=== PATIENT | male | born 1950 | race Caucasian/White ===

== ENCOUNTER 2018-07-22 10:44 | Inpatient (IN) | payer MEDICARE, MEDICAID ==
[~2018-07-22] VITALS: Ht 165.1 cm; Wt 61.4 kg
[2018-07-22] VITALS: BP 130/65
[2018-07-22] MEDS ORDERED: SODIUM CHLORIDE 0.9% 1,000 ML IV ONE (11:32)
[2018-07-22 12:50] LABS: INR 1.3; PROTHROMBIN TIME 12.7 sec (9.1-11.1)
[2018-07-22 12:53] LABS: CHLORIDE 105 mEq/L (98-107)
[2018-07-22 13:00] LABS: BASOPHILS % 0.3 % (0.0-2.0); EOSINOPHILS % 2.8 % (0.0-5.0); HEMATOCRIT. 34.8 % (42.0-52.0); LYMPHOCYTES % 8.5 % (20.0-50.0); MEAN CORPUSCULAR HEMOGLOBIN 32.6 pg (28.0-32.0); MEAN CORPUSCULAR VOLUME 94.7 fL (80.0-94.0); MEAN PLATELET VOLUME 8.7 fl (7.4-10.4); MONOCYTES % 8.9 % (2.0-8.0); NEUTROPHILS % 79.5 % (40.0-76.0); PLATELET 134 x1000/uL (130-400); RED BLOOD CELL COUNT 3.67 mill/uL (4.7-6.1); RED CELL DISTRIBUTION WIDTH 18.1 % (11.6-14.6)
[2018-07-22 13:34] LABS: CLARITY URINE CLEAR (CLEAR); COLOR URINE YELLOW (YELLOW); KETONES URINE TRACE (NEGATIVE); LEUKOCYTE ESTERASE URINE NEGATIVE (NEGATIVE); NITRITE URINE NEGATIVE (NEGATIVE); OCCULT BLOOD URINE NEGATIVE (NEGATIVE); PH URINE 7.5 (4.5-8.0); PROTEIN URINE NEGATIVE (NEGATIVE); SPECIFIC GRAVITY URINE 1.008 (1.005-1.030)
[2018-07-22] MEDS: SODIUM CHLORIDE 0.9% 1,000 ML IV SCH (14:54)
[2018-07-22] MEDS ORDERED: IOHEXOL-300 100 ML BOTTLE ONE (14:59)
[2018-07-22] MEDS ORDERED: NITROGLYCERIN 0.4MG TABLET SL SL PRN (15:00)
[2018-07-22] MEDS ORDERED: DOCUSATE SODIUM 100MG CAPSULE PO PRN (15:00)
[2018-07-22] MEDS ORDERED: IPRATROPIUM/ALBUTEROL 0.5-3(2.5)MG/3ML NEB INH PRN (15:00)
[2018-07-22] MEDS ORDERED: LORAZEPAM 0.5MG TABLET PO PRN (15:00)
[2018-07-22] MEDS ORDERED: ZOLPIDEM TARTRATE 5MG TABLET PO PRN (15:00)
[2018-07-22] MEDS ORDERED: ACETAMINOPHEN 325MG TABLET PO PRN (15:00)
[2018-07-22] MEDS ORDERED: CLONIDINE 0.1MG TABLET PO PRN (15:00)
[2018-07-22] MEDS ORDERED: MAGNESIUM/ALUMINUM HYDROXIDE/SIMETHICONE 30ML UDC PO PRN (15:00)
[2018-07-22] MEDS ORDERED: ENOXAPARIN 40MG/0.4ML SYR SUBCUT SCH ×2 (15:00→23:15)
[2018-07-22] MEDS ORDERED: PIPERACILLIN/TAZ 3.375G PREMIX 50 ML IV SCH (15:00)
[2018-07-22] MEDS ORDERED: GUAIFENESIN 200MG/10ML SUGAR FREE UDC PO PRN (15:00)
[2018-07-22] MEDS ORDERED: ONDANSETRON HCL 4MG/2ML INJ IV PRN (15:00)
[2018-07-22] MEDS ORDERED: DIPHENHYDRAMINE 50MG/ML VIAL IV PRN (15:00)
[2018-07-22] MEDS ORDERED: TRAMADOL 50MG TABLET PO PRN (15:00)
[2018-07-22 23:00] VITALS: BP 130/68
[2018-07-23] VITALS: BP 130/65
[2018-07-23] MEDS: PIPERACILLIN/TAZ 3.375G PREMIX 50 ML IV SCH ×3 (00:21→15:34)
[2018-07-23] MEDS: SODIUM CHLORIDE 0.9% 1,000 ML IV SCH ×3 (02:12→22:27)
[2018-07-23] MEDS: MORPHINE SULFATE 4 MG/ML CPJ (NOT FOR IM USE) IV PRN ×2 (02:46→12:05)
[2018-07-23 04:00] VITALS: BP 96/60
[2018-07-23 08:00] VITALS: BP 107/64
[2018-07-23] MEDS: PANTOPRAZOLE SODIUM 40 MG/VIAL IV SCH (08:35)
[2018-07-23] MEDS: ENOXAPARIN 40MG/0.4ML SYR SUBCUT SCH (08:36)
[2018-07-23] MEDS: ASCORBIC ACID 500 MG TABLET PO SCH ×2 (08:36→20:32)
[2018-07-23] MEDS: ZINC SULFATE 220 MG ( 50 ) CAPSULE PO SCH (08:36)
[2018-07-23 12:00] VITALS: BP 91/53
[2018-07-23 15:32] VITALS: BP 101/61
[2018-07-23 20:00] VITALS: BP 111/62
[2018-07-23] MEDS: MORPHINE SULFATE 15MG TABLET SR PO SCH (20:31)
[2018-07-24] VITALS: BP 99/60
[2018-07-24 04:00] VITALS: BP 99/59
[2018-07-24] MEDS: PIPERACILLIN/TAZ 3.375G PREMIX 50 ML IV SCH ×4 (06:11→20:34)
[2018-07-24] MEDS: SODIUM CHLORIDE 0.9% 1,000 ML IV SCH ×2 (06:13→16:03)
[2018-07-24 08:00] VITALS: BP 101/59
[2018-07-24] MEDS: MORPHINE SULFATE 15MG TABLET SR PO SCH ×2 (08:51→20:33)
[2018-07-24] MEDS: PANTOPRAZOLE SODIUM 40 MG/VIAL IV SCH (08:51)
[2018-07-24] MEDS: ASCORBIC ACID 500 MG TABLET PO SCH ×2 (08:55→20:33)
[2018-07-24] MEDS: ZINC SULFATE 220 MG ( 50 ) CAPSULE PO SCH (08:55)
[2018-07-24] MEDS: ENOXAPARIN 40MG/0.4ML SYR SUBCUT SCH (08:56)
[2018-07-24 12:00] VITALS: BP 128/83
[2018-07-24 16:00] VITALS: BP 118/79
[2018-07-24 20:00] VITALS: BP 104/63
[2018-07-25] VITALS: BP 117/63
[2018-07-25] MEDS: PIPERACILLIN/TAZ 3.375G PREMIX 50 ML IV SCH ×4 (03:05→20:56)
[2018-07-25] MEDS: SODIUM CHLORIDE 0.9% 1,000 ML IV SCH ×2 (03:45→11:19)
[2018-07-25 04:00] VITALS: BP 146/65
[2018-07-25 08:00] VITALS: BP 125/69
[2018-07-25] MEDS: ENOXAPARIN 40MG/0.4ML SYR SUBCUT SCH (08:38)
[2018-07-25] MEDS: FAMOTIDINE 20MG/2ML VIAL IV SCH ×2 (08:38→20:56)
[2018-07-25] MEDS: ZINC SULFATE 220 MG ( 50 ) CAPSULE PO SCH (08:40)
[2018-07-25] MEDS: ASCORBIC ACID 500 MG TABLET PO SCH ×2 (08:40→21:08)
[2018-07-25] MEDS: MORPHINE SULFATE 15MG TABLET SR PO SCH ×2 (08:40→20:57)
[2018-07-25] MEDS: LACTULOSE 20G/30ML UDC PO SCH ×2 (15:14→21:01)
[2018-07-25 16:00] VITALS: BP 111/61
[2018-07-25 20:00] VITALS: BP 119/67
[2018-07-26] VITALS: BP 97/61
[2018-07-26] MEDS: PIPERACILLIN/TAZ 3.375G PREMIX 50 ML IV SCH ×2 (03:36→09:12)
[2018-07-26 04:00] VITALS: BP 98/54
[2018-07-26] MEDS: SODIUM CHLORIDE 0.9% 1,000 ML IV SCH ×2 (05:09→09:13)
[2018-07-26] MEDS: LACTULOSE 20G/30ML UDC PO SCH ×2 (05:10→13:06)
[2018-07-26] MEDS: ZINC SULFATE 220 MG ( 50 ) CAPSULE PO SCH (09:11)
[2018-07-26] MEDS: ASCORBIC ACID 500 MG TABLET PO SCH (09:11)
[2018-07-26] MEDS: ENOXAPARIN 40MG/0.4ML SYR SUBCUT SCH (09:12)
[2018-07-26] MEDS: FAMOTIDINE 20MG/2ML VIAL IV SCH (09:12)
[2018-07-26] MEDS: MORPHINE SULFATE 15MG TABLET SR PO SCH (09:12)
[2018-07-26 12:17] VITALS: BP 114/66
[2018-07-26 15:37] VITALS: BP 114/66
[2018-07-26 16:01] VITALS: BP 99/63
== END 2018-07-26 17:00 | disposition home health service (06) | DRG 871 ==
LOC: EDBEDREQSVC 11:34 → EDBEDREQ 11:34 → ER 11:46 → EDBD 11:46 → 5WST 11:47 → EDBEDREQ 13:23 → SUPCPDRO 14:50 → ENRESERV 19:45
PROVIDERS: ADMIT Internal Medicine; ATTEND Internal Medicine
DX: A41.9 Sepsis, unspecified organism (principal); E43 Unspecified severe protein-calorie malnutrition; K83.1 Obstruction of bile duct; K83.09 Other cholangitis; C78.7 Secondary malignant neoplasm of liver and intrahepatic bile duct; R18.8 Other ascites; C18.9 Malignant neoplasm of colon, unspecified; I95.9 Hypotension, unspecified; E83.51 Hypocalcemia; D63.8 Anemia in other chronic diseases classified elsewhere; Z93.3 Colostomy status; Z68.22 Body mass index [BMI] 22.0-22.9, adult
CPT/HCPCS: 36415; 71045; 74177; 76705; 83036; 83605; 83880; 84484; 93005; 93970; 96365; 96366; 96372; 96375; 97162; 97165; 97535; 99285; C9113; J1650; J2270; J2405; J2543; J3490; J7030; Q9967

== ENCOUNTER 2018-08-11 09:48 | Inpatient (IN) | payer MEDICARE, MEDICAID ==
[~2018-08-11] VITALS: Ht 165.1 cm; Wt 70.3 kg
[2018-08-11] MEDS ORDERED: ONDANSETRON HCL 4MG/2ML INJ IV STA (10:03)
[2018-08-11] MEDS ORDERED: SODIUM CHLORIDE 0.9% 1000ML BAG (SEPSIS BOLUS) IV ONE (10:15)
[2018-08-11 10:40] LABS: BASOPHILS % 0.5 % (0.0-2.0); EOSINOPHILS % 7.5 % (0.0-5.0); HEMATOCRIT. 38.5 % (42.0-52.0); HEMOGLOBIN. 13.3 g/dL (14.0-18.0); LYMPHOCYTES % 14.3 % (20.0-50.0); MEAN CORPUSCULAR HEMOGLOBIN 32.8 pg (28.0-32.0); MEAN CORPUSCULAR VOLUME 95.1 fL (80.0-94.0); MEAN PLATELET VOLUME 8.5 fl (7.4-10.4); MONOCYTES % 6.5 % (2.0-8.0); NEUTROPHILS % 71.2 % (40.0-76.0); PLATELET 146 x1000/uL (130-400); RED BLOOD CELL COUNT 4.05 mill/uL (4.7-6.1); RED CELL DISTRIBUTION WIDTH 20.2 % (11.6-14.6)
[2018-08-11 10:45] LABS: CHLORIDE 97 mEq/L (98-107)
[2018-08-11 10:46] LABS: INR 1.2; PROTHROMBIN TIME 12.5 sec (9.1-11.1)
[2018-08-11 10:49] LABS: ETHANOL BLOOD < 10 mg/dL
[2018-08-11 11:56] LABS: CLARITY URINE CLEAR (CLEAR); COLOR URINE DARK YELLOW (YELLOW); KETONES URINE 1+ (NEGATIVE); LEUKOCYTE ESTERASE URINE NEGATIVE (NEGATIVE); NITRITE URINE NEGATIVE (NEGATIVE); OCCULT BLOOD URINE NEGATIVE (NEGATIVE); PH URINE 6.5 (4.5-8.0); PROTEIN URINE NEGATIVE (NEGATIVE); SPECIFIC GRAVITY URINE 1.015 (1.005-1.030)
[2018-08-11] MEDS ORDERED: MORPHINE SULFATE 4 MG/ML CPJ (NOT FOR IM USE) IV ONE (12:00)
[2018-08-11] MEDS ORDERED: NA PHOS,M-B/NA PHOS,DI-BA ENEMA 118ML PR PRN (12:45)
[2018-08-11] MEDS ORDERED: NITROGLYCERIN 0.4MG TABLET SL SL PRN (12:45)
[2018-08-11] MEDS ORDERED: DIPHENHYDRAMINE 50MG/ML VIAL IV PRN (12:45)
[2018-08-11] MEDS ORDERED: ACETAMINOPHEN 325MG TABLET PO PRN (12:45)
[2018-08-11] MEDS ORDERED: GUAIFENESIN 200MG/10ML SUGAR FREE UDC PO PRN (12:45)
[2018-08-11] MEDS ORDERED: ONDANSETRON HCL 4MG/2ML INJ IV PRN ×2 (12:45→16:26)
[2018-08-11] MEDS ORDERED: DOCUSATE SODIUM 100MG CAPSULE PO PRN (12:45)
[2018-08-11] MEDS ORDERED: CLONIDINE 0.1MG TABLET PO PRN (12:45)
[2018-08-11] MEDS ORDERED: TRAMADOL 50MG TABLET PO PRN (12:45)
[2018-08-11] MEDS ORDERED: ZOLPIDEM TARTRATE 5MG TABLET PO PRN (12:45)
[2018-08-11] MEDS ORDERED: IPRATROPIUM/ALBUTEROL 0.5-3(2.5)MG/3ML NEB INH PRN (12:45)
[2018-08-11] MEDS ORDERED: PIPERACILLIN/TAZ 3.375G PREMIX 50 ML IV SCH (14:00)
[2018-08-11] MEDS: SODIUM CHLORIDE 0.9% 1,000 ML IV SCH (15:08)
[2018-08-11] MEDS: ENOXAPARIN 40MG/0.4ML SYR SUBCUT SCH (15:09)
[2018-08-11] MEDS ORDERED: MORPHINE SULFATE 4 MG/ML CPJ (NOT FOR IM USE) IV PRN (16:27)
[2018-08-11] MEDS ORDERED: FAMOTIDINE 20MG TABLET PO SCH (21:00)
[2018-08-11] MEDS ORDERED: ASCORBIC ACID 500 MG TABLET PO SCH (21:00)
[2018-08-11] MEDS ORDERED: ASCORBIC ACID 500 MG TABLET PO NR (21:30)
[2018-08-11] MEDS ORDERED: FAMOTIDINE 20MG TABLET PO NR (21:30)
[2018-08-11] MEDS: MORPHINE SULFATE 4 MG/ML CPJ (NOT FOR IM USE) IV PRN (21:47)
[2018-08-11 23:59] VITALS: BP 102/64
[2018-08-12] VITALS: BP 102/64
[2018-08-12] MEDS: SODIUM CHLORIDE 0.9% 1,000 ML IV SCH ×2 (01:14→13:29)
[2018-08-12 04:00] VITALS: BP 96/57
[2018-08-12] MEDS ORDERED: VANCOMYCIN 1 G PREMIX 200 ML IV NR (04:00)
[2018-08-12] MEDS: MORPHINE SULFATE 4 MG/ML CPJ (NOT FOR IM USE) IV PRN ×3 (04:48→21:18)
[2018-08-12] MEDS: PIPERACILLIN/TAZ 3.375G PREMIX 50 ML IV SCH ×3 (06:50→20:51)
[2018-08-12 08:31] VITALS: BP 100/58
[2018-08-12] MEDS: ASCORBIC ACID 500 MG TABLET PO SCH ×2 (09:00→20:52)
[2018-08-12] MEDS: ZINC SULFATE 220 MG ( 50 ) CAPSULE PO SCH (09:00)
[2018-08-12] MEDS: FAMOTIDINE 20MG TABLET PO SCH ×2 (09:00→20:51)
[2018-08-12 12:00] VITALS: BP 122/74
[2018-08-12] MEDS: LACTULOSE 20G/30ML UDC PO SCH ×2 (13:29→20:51)
[2018-08-12] MEDS: ENOXAPARIN 40MG/0.4ML SYR SUBCUT SCH (13:31)
[2018-08-12] MEDS ORDERED: VANCOMYCIN 750 MG PREMIX 150 ML IV SCH (14:00)
[2018-08-12 16:00] VITALS: BP 101/64
[2018-08-12] MEDS ORDERED: MORP15TA67 PO (16:42)
[2018-08-12] MEDS ORDERED: SENN-139 PO (16:42)
[2018-08-12] MEDS ORDERED: OXYC10TA48 PO (16:42)
[2018-08-12] MEDS: VANCOMYCIN 1 G PREMIX 200 ML IV SCH (17:49)
[2018-08-12] MEDS: MEGESTROL ACETATE 400 MG/10 ML UDC PO SCH (17:49)
[2018-08-12 20:00] VITALS: BP 117/79
[2018-08-13] VITALS: BP 117/79
[2018-08-13] MEDS: SODIUM CHLORIDE 0.9% 1,000 ML IV SCH ×2 (01:24→15:01)
[2018-08-13] MEDS: MORPHINE SULFATE 4 MG/ML CPJ (NOT FOR IM USE) IV PRN ×5 (01:25→22:36)
[2018-08-13] MEDS: PIPERACILLIN/TAZ 3.375G PREMIX 50 ML IV SCH ×4 (02:54→22:11)
[2018-08-13 04:00] VITALS: BP 112/68
[2018-08-13] MEDS: VANCOMYCIN 1 G PREMIX 200 ML IV SCH ×2 (05:24→20:55)
[2018-08-13] MEDS: LACTULOSE 20G/30ML UDC PO SCH ×3 (06:00→20:56)
[2018-08-13 08:00] VITALS: BP 110/68
[2018-08-13] MEDS: MEGESTROL ACETATE 400 MG/10 ML UDC PO SCH ×2 (09:10→18:17)
[2018-08-13] MEDS: ZINC SULFATE 220 MG ( 50 ) CAPSULE PO SCH (09:10)
[2018-08-13] MEDS: ASCORBIC ACID 500 MG TABLET PO SCH ×2 (09:10→20:55)
[2018-08-13] MEDS: FAMOTIDINE 20MG TABLET PO SCH ×2 (09:10→20:55)
[2018-08-13 12:00] VITALS: BP 102/67
[2018-08-13] MEDS: MAGNESIUM/ALUMINUM HYDROXIDE/SIMETHICONE 30ML UDC PO PRN (12:42)
[2018-08-13] MEDS: ENOXAPARIN 40MG/0.4ML SYR SUBCUT SCH (15:00)
[2018-08-13 16:00] VITALS: BP 114/66
[2018-08-13 20:00] VITALS: BP 104/64
[2018-08-14] VITALS: BP 104/53
[2018-08-14] MEDS: PIPERACILLIN/TAZ 3.375G PREMIX 50 ML IV SCH ×4 (03:10→20:12)
[2018-08-14] MEDS: SODIUM CHLORIDE 0.9% 1,000 ML IV SCH ×2 (03:10→17:34)
[2018-08-14] MEDS: MORPHINE SULFATE 4 MG/ML CPJ (NOT FOR IM USE) IV PRN ×4 (03:42→20:12)
[2018-08-14 04:00] VITALS: BP 115/61
[2018-08-14] MEDS: LACTULOSE 20G/30ML UDC PO SCH ×3 (05:17→14:00)
[2018-08-14 08:00] VITALS: BP 103/68
[2018-08-14 08:23] LABS: CHLORIDE 109 mEq/L (98-107)
[2018-08-14] MEDS: ZINC SULFATE 220 MG ( 50 ) CAPSULE PO SCH (08:40)
[2018-08-14] MEDS: ASCORBIC ACID 500 MG TABLET PO SCH ×2 (08:40→20:12)
[2018-08-14] MEDS: FAMOTIDINE 20MG TABLET PO SCH ×2 (08:40→20:12)
[2018-08-14] MEDS: VANCOMYCIN 1 G PREMIX 200 ML IV SCH ×2 (08:40→20:59)
[2018-08-14] MEDS: MEGESTROL ACETATE 400 MG/10 ML UDC PO SCH ×2 (08:40→17:53)
[2018-08-14 12:00] VITALS: BP 107/73
[2018-08-14] MEDS ORDERED: POTASSIUM CHLORIDE 20MEQ TABLET SR PO NR (13:00)
[2018-08-14] MEDS: ENOXAPARIN 40MG/0.4ML SYR SUBCUT SCH (15:21)
[2018-08-14 16:00] VITALS: BP 104/76
[2018-08-14 20:00] VITALS: BP 114/69
[2018-08-14] MEDS: MAGNESIUM/ALUMINUM HYDROXIDE/SIMETHICONE 30ML UDC PO PRN (23:37)
[2018-08-15] VITALS: BP 131/82
[2018-08-15] MEDS: PIPERACILLIN/TAZ 3.375G PREMIX 50 ML IV SCH ×4 (03:09→20:53)
[2018-08-15] MEDS: MORPHINE SULFATE 4 MG/ML CPJ (NOT FOR IM USE) IV PRN ×4 (03:10→19:44)
[2018-08-15 04:00] VITALS: BP 111/75
[2018-08-15] MEDS: SODIUM CHLORIDE 0.9% 1,000 ML IV SCH ×2 (06:57→22:23)
[2018-08-15 08:00] VITALS: BP 106/60
[2018-08-15] MEDS: MAGNESIUM/ALUMINUM HYDROXIDE/SIMETHICONE 30ML UDC PO PRN (08:20)
[2018-08-15] MEDS: VANCOMYCIN 1 G PREMIX 200 ML IV SCH ×2 (08:20→22:23)
[2018-08-15] MEDS: ZINC SULFATE 220 MG ( 50 ) CAPSULE PO SCH (08:39)
[2018-08-15] MEDS: MEGESTROL ACETATE 400 MG/10 ML UDC PO SCH ×2 (08:39→17:47)
[2018-08-15] MEDS: ASCORBIC ACID 500 MG TABLET PO SCH ×2 (08:39→20:53)
[2018-08-15] MEDS: FAMOTIDINE 20MG TABLET PO SCH ×2 (08:39→20:53)
[2018-08-15 12:00] VITALS: BP 136/82
[2018-08-15] MEDS: LACTULOSE 20G/30ML UDC PO SCH ×2 (14:25→21:02)
[2018-08-15] MEDS: ENOXAPARIN 40MG/0.4ML SYR SUBCUT SCH (14:25)
[2018-08-15 16:00] VITALS: BP 118/79
[2018-08-15 20:00] VITALS: BP 127/75
[2018-08-16] VITALS: BP 116/79
[2018-08-16] MEDS: PIPERACILLIN/TAZ 3.375G PREMIX 50 ML IV SCH ×3 (02:29→15:20)
[2018-08-16 04:00] VITALS: BP 111/75
[2018-08-16] MEDS: LACTULOSE 20G/30ML UDC PO SCH ×2 (06:07→13:41)
[2018-08-16] MEDS: SODIUM CHLORIDE 0.9% 1,000 ML IV SCH ×2 (06:08→15:20)
[2018-08-16] MEDS: MORPHINE SULFATE 4 MG/ML CPJ (NOT FOR IM USE) IV PRN (06:12)
[2018-08-16 08:00] VITALS: BP 92/63
[2018-08-16] MEDS: VANCOMYCIN 1 G PREMIX 200 ML IV SCH (08:04)
[2018-08-16] MEDS: ASCORBIC ACID 500 MG TABLET PO SCH (08:54)
[2018-08-16] MEDS: FAMOTIDINE 20MG TABLET PO SCH (08:54)
[2018-08-16] MEDS: ZINC SULFATE 220 MG ( 50 ) CAPSULE PO SCH (08:54)
[2018-08-16] MEDS: MEGESTROL ACETATE 400 MG/10 ML UDC PO SCH (08:57)
[2018-08-16 12:00] VITALS: BP 120/76
[2018-08-16] MEDS: ENOXAPARIN 40MG/0.4ML SYR SUBCUT SCH (15:20)
[2018-08-16 16:00] VITALS: BP 119/66
[2018-08-16 16:04] VITALS: BP 119/66
== END 2018-08-16 17:20 | disposition home or self-care (01) | DRG 871 ==
LOC: ER 09:48 → EDBEDREQSVC 12:01 → EDBEDREQ 12:01 → ENRESERV 21:57 → 5WST 23:09
PROVIDERS: ADMIT Internal Medicine; ATTEND Internal Medicine
DX: A41.9 Sepsis, unspecified organism (principal); E43 Unspecified severe protein-calorie malnutrition; K83.1 Obstruction of bile duct; G92 Toxic encephalopathy; E87.1 Hypo-osmolality and hyponatremia; C18.9 Malignant neoplasm of colon, unspecified; C79.9 Secondary malignant neoplasm of unspecified site; E83.51 Hypocalcemia; L89.150 Pressure ulcer of sacral region, unstageable; E86.0 Dehydration; D63.8 Anemia in other chronic diseases classified elsewhere; E83.52 Hypercalcemia; K59.00 Constipation, unspecified; Z93.3 Colostomy status; Z68.25 Body mass index [BMI] 25.0-25.9, adult
CPT/HCPCS: 36415; 71045; 74018; 80048; 80202; 80320; 83036; 83605; 83880; 84134; 84145; 84484; 93005; 93970; 96365; 96366; 96375; 97162; 97165; 99285; A6261; J1650; J2270; J2405; J2543; J3370; J7030; J7050; G0480